=== PATIENT | male | born 1950 | race Caucasian/White ===

== ENCOUNTER 2018-01-19 09:56 | Day surgery (SDC) | payer MEDICARE, MEDICAID ==
[2018-01-18 14:03] VITALS: BMI 21.7
[2018-01-19 11:16] LABS: Hemoglobin 13.9 g/dL (14.0-18.0)
[2018-01-19 11:39] LABS: Anion Gap 8 mmol/L (10-20); BUN (Urea Nitrogen) 18 mg/dL (8.4-25.7); Calc. Creatinine Clearance 97 mL/min (70-130); Calcium 9.1 mg/dL (7.8-10.44); Carbon Dioxide 32 mmol/L (23-31); Chloride 103 mmol/L (98-107); Estimated GFR-MDRD Greater than 90; Glucose 95 mg/dL (80-115); Potassium 4.3 mmol/L (3.5-5.1); Sodium 139 mmol/L (136-145)
[2018-01-19] MEDS ORDERED: PROPOFOL 200 MG/20 ML VIAL ONE (11:47)
[2018-01-19] MEDS ORDERED: Lidocaine 1% PF 5 ML VIAL ONE (11:47)
[2018-01-19] MEDS ORDERED: PHENYLEPHRINE-NS 100 MCG/ML 10 ML SYRINGE ONE (11:47)
[2018-01-19] MEDS ORDERED: ePHEDrine/0.9% NaCl/PF SYRINGE 50 mg/10 ml ONE (11:47)
[2018-01-19] MEDS ORDERED: Fentanyl 100 MCG/2 ML VIAL ONE (14:08)
[2018-01-19] MEDS ORDERED: Lidocaine 1% w/Epinephrine 1:100K 30 ML VIAL ONE (14:17)
--- NOTE | 2018-01-20 12:57 | OP ---
DATE OF PROCEDURE: 01/19/2018 PREOPERATIVE DIAGNOSIS: Posttraumatic auricular hematoma. POSTOPERATIVE DIAGNOSIS: Posttraumatic auricular hematoma. PROCEDURE PERFORMED: Incision and drainage of auricular hematoma. PROCEDURE IN DETAIL: After consent was obtained, the patient was identified, brought to the operating room, and placed on the operating table in supine position. General anesthesia was obtained with a laryngeal mask respiratory tube. The patient was positioned for surgery, prepped, and draped. We then made an incision around the helical rim and carried it down through the perichondrium. We then encountered old hematoma, which was evacuated. The skin was then reapproximated in [id number] fashion with several 1-0 chromic quilting sutures. Sterile dressing was applied. The patient was then awakened and taken to recovery room in stable condition prior to discharge home. Job ID: [id number]
--- NOTE | 2018-01-20 18:51 | EKG ---
Test Reason : PREOP Blood Pressure : / mmHG Vent. Rate : 075 BPM Atrial Rate : 075 BPM P-R Int : 162 ms QRS Dur : 070 ms QT Int : 368 ms P-R-T Axes : 075 081 074 degrees QTc Int : 410 ms Normal sinus rhythm Normal ECG No previous ECGs available Confirmed by Elena PUGA ([id number]) on 01/20/2018 6:51:09 PM Referred By: MAY Confirmed By:Elena PUGA
== END 2018-01-19 17:15 | disposition home or self-care (01) ==
LOC: SDC 09:56
PROVIDERS: ATTEND Specialist
PROC: 09900ZZ Drainage of Right External Ear, Open Approach (ICD-10-PCS; principal; 2018-01-19)
DX: S00.431A Contusion of right ear, initial encounter (principal); F20.9 Schizophrenia, unspecified; G80.9 Cerebral palsy, unspecified; M19.90 Unspecified osteoarthritis, unspecified site; K21.9 Gastro-esophageal reflux disease without esophagitis; Z79.51 Long term (current) use of inhaled steroids; Z79.82 Long term (current) use of aspirin; Z79.899 Other long term (current) drug therapy; W22.8XXA Striking against or struck by other objects, initial encounter
CPT/HCPCS: 80048; 85014; 85018; 93005; 93010; J2001; J2704; J3010

== ENCOUNTER 2020-02-10 12:46 | Inpatient (IN) | payer MEDICARE, MEDICAID ==
[2020-02-10 13:21] LABS: #Basophils 0.1 thou/uL (0.0-0.2); #Lymphocytes 2.8 thou/uL (1.20-3.40); #Monocytes 0.8 thou/uL (0.11-0.59); #Neutrophils 8.1 thou/uL (1.40-6.50); %Basophils 0.5 % (0.0-1.0); %Eosinophils 0.3 % (0.0-10.0); %Lymphocytes 23.5 % (21.0-51.0); %Neutrophils 68.7 % (42.0-75.0); Hemoglobin 15.7 g/dL (14.0-18.0); Mean Corpuscular HGB CONC 31.9 g/dL (32.0-36.0); Mean Corpuscular Hemoglobin 31.1 pg (27.0-31.0); Mean Corpuscular Volume 97.6 fL (78.0-98.0); Mean Platelet Volume 7.2 fL (7.4-10.4); Platelet Count 296 thou/uL (130-400); RBC Distribution Width 12.5 % (11.5-14.5); Red Blood Cell (RBC) Count 5.04 mill/uL (4.70-6.10); White Blood Cell (WBC) Count 11.8 thou/uL (4.8-10.8)
[2020-02-10 13:44] LABS: ALT (SGPT) 24 U/L (8-55); AST (SGOT) 20 U/L (5-34); Albumin 3.8 g/dL (3.4-4.8); Alkaline Phosphatase 39 U/L (40-110); Anion Gap 14 mmol/L (10-20); BUN (Urea Nitrogen) 33 mg/dL (8.4-25.7); Bilirubin, Total 0.7 mg/dL (0.2-1.2); Calc. Creatinine Clearance 0 mL/min (70-130); Calcium 8.5 mg/dL (7.8-10.44); Carbon Dioxide 29 mmol/L (23-31); Chloride 106 mmol/L (98-107); Globulin 3.2 g/dL (2.4-3.5); Glucose 138 mg/dL (80-115); Potassium 3.8 mmol/L (3.5-5.1); Sodium 145 mmol/L (136-145)
[2020-02-10 13:51] LABS: Bilirubin Negative (Negative); Blood, Urine Trace (Negative); Clarity Clear (Clear); Glucose, Urine (Dipstick) Normal (Negative); Ketone, Urine Negative (Negative); Leukocyte Negative Leu/uL (Negative); Mucous/LPF 2+ LPF (<2+); Nitrite Negative (Negative); Protein, Urine (Dipstick) 30 mg/dL (Neg-Trace); Specific Gravity, Urine 1.034 (1.002-1.036); Squamous Epithelial None Seen HPF (0-3); Urobilinogen Normal mg/dL (Less than 2); WBC/HPF 0-3 HPF (0-3); pH, Urine 5.5 (5.0-9.0)
--- NOTE | 2020-02-10 13:57 | RAD ---
CHEST ONE VIEW: Comparison: 08-27-2019 History: Fever, Covid positive patient FINDINGS: Stable elongation of the aorta. Normal cardiac silhouette. The pulmonary vessels and hilum are normal . Costophrenic angles are clear. No masses or consolidation. Chronic interstitial changes. There is a calcified granuloma in the left lung base. No pneumothorax or acute osseous abnormalities. IMPRESSION: No acute cardiopulmonary process. POS: PPP
[2020-02-10 14:00] LABS: Bacteria/HPF 1+ HPF (None Seen)
[2020-02-10] MEDS ORDERED: Acetaminophen 650 MG Suppository ONE (14:05)
[2020-02-10] MEDS ORDERED: cefTRIAXone\\ROCEPHIN 2 GM VIAL ONE (14:09)
[2020-02-10 14:29] LABS: SARS-CoV-2 NAA Rapid Test Not Detected (NotDetected)
--- NOTE | 2020-02-10 15:53 | PDOC.HHP ---
Hospitalist HPI - History of Present Illness Persistent fever History of Present Illness: Mr. Rojas is a 69-year-old male with a past medical history of cerebral palsy, nonverbal at baseline from [facility], type 2 diabetes mellitus, GERD, history of recurrent UTIs with sepsis, colostomy bag in place who presents from [facility] for persistent fever. Patient's fever began on 01/15 and patient was given Cipro, however no resolution of fever. [facility] reports patient's fever has been 103 to 103.9 degrees orally. Patient is nonverbal at baseline but nursing staff reports no change in patient's baseline mental status and no other symptoms that they are aware of. Of note patient has history of prior Covid infection in August, and has tested negative for Covid PCR here. Emergency room initial vital signs 118/74, 98, 20, 101.4, 92% on room air. Patient's white blood cell count 11.8, lactic acid 2.7. H/H 15.7/49.1. BUN/CR 33/0.82. Sodium 145, potassium 3.8. Glucose 138. Chest x-ray showed calcified granuloma and chronic interstitial changes but no acute findings. UA with trace blood, leukocyte esterase negative, 0-3 WBCs and 1+ bacteria. Patient admitted to hospital service for further work-up of patient's fever. Hospitalist ROS - Review of Systems ROS unobtainable: due to mental status Constitutional: reports: fever - Medication Medications: Medication list taken from ER records Aspirin Baclofen Citalopram Lactulose Omeprazole Allergy to pollen We will need to confirm medication list with care home. Hospitalist History - Past Medical History Source: care home record, old records Other Medical History: Past medical history includes Cerebral palsy Schizoaffective disorder UTIs with sepsis Type 2 diabetes mellitus GERD Colostomy Prior COVID-19 infection in August 2019 - Family History Other Family History: Unable to obtain - Social History Other Social History: Patient is quadriplegic and lives at [facility]. No family or other social information available. - Exam General - other findings: Opens eyes to voice, does not follow commands Eye: PERRL, anicteric sclera ENT: normocephalic atraumatic Neck: supple, symmetric, no JVD, no thyromegaly, no lymphadenopathy, no carotid bruit Heart: RRR, no murmur, no gallops, no rubs, normal peripheral pulses Respiratory: CTAB, no wheezes, no rales, no ronchi, normal chest expansion, no tachypnea, normal percussion Gastrointestinal: soft, non-tender, non-distended, normal bowel sounds, no palpable masses, no hepatomegaly, no splenomegaly, no bruit Gastrointestinal - other findings: Colostomy bag in place Extremities - other findings: Limbs contracted Skin: normal turgor, no lesions, no rashes Neurological - other findings: Quadriplegia with contraction Musculoskeletal - other findings: Hypertonia in all limbs Psychiatric - other findings: Opens eyes to voice, nonverbal, does not follow commands or answer yes/no q Hospitalist Results - Labs Result Diagrams: 02/11/20 06:18 02/11/20 06:18 Lab results: WBC 11.8 thou/uL (4.8-10.8) H 02/10/20 13:08 Hgb 15.7 g/dL (14.0-18.0) 02/10/20 13:08 Hct 49.1 % (42.0-52.0) 02/10/20 13:08 MCV 97.6 fL (78.0-98.0) 02/10/20 13:08 Plt Count 296 thou/uL (130-400) 02/10/20 13:08 Neutrophils % 68.7 % (42.0-75.0) 02/10/20 13:08 Sodium 145 mmol/L (136-145) 02/10/20 13:08 Potassium 3.8 mmol/L (3.5-5.1) 02/10/20 13:08 Chloride 106 mmol/L (98-107) 02/10/20 13:08 Carbon Dioxide 29 mmol/L (23-31) 02/10/20 13:08 BUN 33 mg/dL (8.4-25.7) H 02/10/20 13:08 Creatinine 0.82 mg/dL (0.7-1.3) 02/10/20 13:08 Glucose 138 mg/dL (80-115) H 02/10/20 13:08 Lactic Acid 2.7 mmol/L (0.5-2.2) H 02/10/20 13:08 Calcium 8.5 mg/dL (7.8-10.44) 02/10/20 13:08 Total Bilirubin 0.7 mg/dL (0.2-1.2) 02/10/20 13:08 AST 20 U/L (5-34) 02/10/20 13:08 ALT 24 U/L (8-55) 02/10/20 13:08 Alkaline Phosphatase 39 U/L (40-110) L 02/10/20 13:08 Serum Total Protein 7.0 g/dL (5.8-8.1) 02/10/20 13:08 Albumin 3.8 g/dL (3.4-4.8) 02/10/20 13:08 Urine Ketones Negative mg/dL (Negative) 02/10/20 13:20 Urine Blood Trace (Negative) A 02/10/20 13:20 Urine Nitrite Negative (Negative) 02/10/20 13:20 Ur Leukocyte Esterase Negative Lebron/uL (Negative) 02/10/20 13:20 Urine RBC 7-10 HPF (0-3) A 02/10/20 13:20 Urine WBC 0-3 HPF (0-3) 02/10/20 13:20 Ur Squamous Epith Cells None Seen HPF (0-3) 02/10/20 13:20 Urine Bacteria 1+ HPF (None Seen) A 02/10/20 13:20 Hospitalist H&P A/P - Plan Plan: Presumed UTI with persistent fevers Unknown origin. Patient initiated on Cipro for suspected UTI at care home 3 days ago, however patient remains febrile. Chest x-ray with no acute findings, UA negative, awaiting urine cultures. No obvious source of infection at this time. Patient febrile to as high as 103.4 at care home, currently febrile at 101.4 on Tylenol. WBC 11.8. Lactic acid 2.7. UA on 02/08 grossly positive. UA today 02/09 looks improved. Waiting on urine cultures. Will obtain blood cultures. Patient received ceftriaxone in emergency room. COVID, Flu negative. Plan Blood cultures, urine cultures Trend WBC, lactic acid, fever curve Continue ceftriaxone IV fluids Cerebral palsy History of cerebral palsy. Patient is quadriplegic and resides at [facility]. Patient with severe muscle contractures and is nonverbal at baseline. Patient on home baclofen, lactulose. We will continue these once d osages are confirmed. Plan Continue home medications once dosages confirmed We will place patient on fall precautions Pured diet honey thickened liquids Aspiration precautions Type 2 diabetes mellitus History of type 2 diabetes mellitus, however records are conflicting on if patient is on insulin or not. BMP glucose 138. Will place on a [facility] glucose checks and monitor for now. History of COVID-19 infection Hx of COVID in August of 2019. Patient is COVID negative on admission. DVT prophylaxisLovenox Unable to confirm CODE STATUS, records are conflicting. I have attempted to call family with numbers listed in medical records, however no answer. Case discussed with Dr. Waller
[2020-02-10] MEDS ORDERED: Acetaminophen 650 MG Suppository PR PRN (16:11)
[2020-02-10] MEDS ORDERED: Bisacodyl 10 MG SUPP PR PRN (16:11)
[2020-02-10] MEDS ORDERED: Ondansetron PF 4 MG/2 ML Vial IVP PRN (16:11)
[2020-02-10 17:13] LABS: Lactic Acid 1.4 mmol/L (0.5-2.2)
--- NOTE | 2020-02-10 20:04 | PDOC.BPN ---
- Brief Progress Note Encounter Date: 02/10/20 Encounter Time: 20:04 chart reviewed and patient discussed with LOUIS Tidwell, I agree with the plan of care as outlined in the History & Physical.
[2020-02-10] MEDS: Sodium Chloride 0.9% 1,000 ML IV SCH (21:40)
[2020-02-10 23:56] VITALS: BMI 18.2
[2020-02-11] MEDS: Sodium Chloride 0.9% 1,000 ML IV SCH (04:20)
--- NOTE | 2020-02-11 06:07 | PDOC.FM ---
- Subjective Subjective: Mr. Rojas does not appear to be in any distress but is difficult to assess given his nonverbal status and quadriplegia. - Objective Vital Signs & Weight: Vital Signs (12 hours) Temp Pulse Resp BP Pulse Ox 02/11/20 03:00 99.9 F H 93 18 105/64 98 02/10/20 23:55 113/79 02/10/20 23:37 98.4 F 87 18 85/47 L 95 02/10/20 19:48 98.0 F 87 18 94/61 95 Weight Weight 51.2 kg I&O: 02/09/20 02/10/20 02/11/20 06:59 06:59 06:59 Intake Total 1000 Output Total 0 Balance 1000 Result Diagrams: 02/11/20 06:18 02/11/20 06:18 Phys Exam - Physical Examination Constitutional: NAD Neck: supple Respiratory: clear to auscultation bilateral Cardiovascular: RRR, no significant murmur Gastrointestinal: soft, no distention, positive bowel sounds No edema/erythema/discharge around colostomy insertion site Musculoskeletal: no edema Quadriplegic at baseline Nonverbal, A&O difficult to assess Skin: no rash Dx/Plan - Plan Plan: This is a 69M who presented from [facility] for persistent fevers in the setting of a known UTI. Presumed UTI - [facility]. Fevers persisted into 103sF - UA pos for 1+ bacteria, protein, blood, RBCs. s/p Rocephin in ED. * UA on 02/08 grossly positive - Chest x-ray with no acute findings. Resp panel, including flu and covid neg - On admission, WBC 11.8, LA 2.7 > 1.4 - am CBC, BMP - UCx pending - BCx NGTD - Continue Rocephin. Tylenol for fever. - mIVF of NS at 100mL/h Cerebral palsy - Patient is quadriplegic with severe muscle contractures and is nonverbal and hard of hearing at baseline. - Continue home meds - High risk for pressure sores and several present on arrival. Wound care con sulted. NPO pending speech eval - Fall precautions and strict bedrest. Aspiration precautions Type 2 diabetes mellitus - Per clinic record from 12/2019, pt not on insulin - ACHS checks. Consider hypoglycemia protocol Chronic conditions Chronic constipation with divine colon and sigmoid colectomy: continue home meds GERD: Continue home Omeprazole Schizoaffective disorder: does not appear to be on any medications for this currently Rosacea History of COVID-19 infection - August of 2019. COVID negative on admission. IVF: NS 100mL/h DVT: Lovenox Code: Will call [facility] and attempt calling family today to verify given conflicting reports. PCP: [facility] Dispo: admit to in medical. Still searching for clear source of infxn. Will continue to monitor vitals and labwork. Addendum - Attending - Attending Attestation Date/Time: 02/11/20 1200 I personally evaluated the patient and discussed the management with Dr. King Olea. I agree with the History, Examination, Assessment and Plan documented above with any addition or exceptions noted below.
[2020-02-11 06:57] LABS: #Basophils 0.1 thou/uL (0.0-0.2); #Eosinphils 0.1 thou/uL (0.0-0.7); #Lymphocytes 2.4 thou/uL (1.20-3.40); #Monocytes 0.5 thou/uL (0.11-0.59); #Neutrophils 7.3 thou/uL (1.40-6.50); %Basophils 0.7 % (0.0-1.0); %Eosinophils 0.6 % (0.0-10.0); %Lymphocytes 22.9 % (21.0-51.0); %Monocytes 5.2 % (0.0-10.0); %Neutrophils 70.7 % (42.0-75.0); Mean Corpuscular HGB CONC 32.5 g/dL (32.0-36.0); Mean Corpuscular Hemoglobin 31.7 pg (27.0-31.0); Mean Corpuscular Volume 97.5 fL (78.0-98.0); Mean Platelet Volume 7.6 fL (7.4-10.4); Platelet Count 249 thou/uL (130-400); RBC Distribution Width 12.5 % (11.5-14.5); Red Blood Cell (RBC) Count 4.11 mill/uL (4.70-6.10); White Blood Cell (WBC) Count 10.3 thou/uL (4.8-10.8)
[2020-02-11 07:19] LABS: Anion Gap 13 mmol/L (10-20); BUN (Urea Nitrogen) 24 mg/dL (8.4-25.7); Calc. Creatinine Clearance 74 mL/min (70-130); Calcium 7.8 mg/dL (7.8-10.44); Carbon Dioxide 26 mmol/L (23-31); Chloride 111 mmol/L (98-107); Glucose 96 mg/dL (80-115); Potassium 3.8 mmol/L (3.5-5.1); Sodium 146 mmol/L (136-145)
[2020-02-11] MEDS ORDERED: IBUPROFEN 200 MG PO PRN (08:23)
[2020-02-11] MEDS ORDERED: Milk Of Magnesia 30 ML UDCUP PO PRN (08:23)
[2020-02-11] MEDS: Enoxaparin Sodium 30 MG/0.3 ML SYRINGE SC SCH (08:43)
[2020-02-11] MEDS ORDERED: Non-Formulary Item 1 EACH (Amino Acids/Protein Hydrolys [Pro-Stat 64 Liquid] 30 ML Packet PO SCH (09:00)
[2020-02-11] MEDS ORDERED: Non-Formulary Item 1 EACH (Fluticasone Furoate [Arnuity Ellipta] 50 MCG Blst.W.Dev) EA NARE SCH (09:00)
[2020-02-11] MEDS ORDERED: Aspirin 325 mg Enteric Coated Tablet PO SCH (12:00)
[2020-02-11] MEDS ORDERED: Citalopram 10 MG TAB PO SCH (12:00)
[2020-02-11] MEDS ORDERED: Ascorbic Acid 500 mg Chewable Tablet PO SCH (12:00)
[2020-02-11] MEDS: Lactated Ringer's 1,000 ML IV SCH ×2 (12:22→21:40)
[2020-02-11] MEDS: cefTRIAXone\\ROCEPHIN 1 GM in Sodium Chloride 0.9% 100 ML IVPB SCH (13:49)
[2020-02-11] MEDS ORDERED: Acetaminophen 500 MG TAB PO SCH (15:00)
[2020-02-11] MEDS: Hydrocerin (Eucerin) Cream 120 gm Jar TOP SCH (21:00)
[2020-02-11] MEDS ORDERED: Baclofen 10 MG TAB PO SCH (21:00)
[2020-02-11] MEDS ORDERED: Carbamide Peroxide 6.5% Otic Drops 15 ml Bottle EA EAR PRN (21:00)
[2020-02-11] MEDS ORDERED: FLU VACC QS2020-21(65YR UP)/PF 240 MCG/0.7 ML SYRINGE IM ONE (21:00)
[2020-02-11] MEDS: Fluticasone Propionate Nasal Spray 16 gm Bottle NASAL SCH (21:31)
--- NOTE | 2020-02-12 07:05 | PDOC.FM ---
- Subjective Subjective: Elevated temp to 100.2F without true fever overnight, resolved without anti- pyretic. Occasional grimacing this morning, remains non-verbal but does open eyes with stimulation. Unable to assess ROS due to patient inability to answer questions. - Objective Vital Signs & Weight: Vital Signs (12 hours) Temp Pulse Resp BP Pulse Ox 02/12/20 04:43 99.6 F 84 82 H 134/77 98 02/12/20 02:15 98.2 F 02/12/20 00:50 100.2 F H 80 18 115/70 100 02/11/20 20:57 99.1 F 02/11/20 20:00 100.1 F H 76 18 125/71 100 02/11/20 19:41 100 Weight Admit Weight 51.2 kg Weight 51.2 kg I&O: 02/11/20 02/12/20 02/13/20 06:59 06:59 06:59 Intake Total 1000 1800 Output Total 0 0 Balance 1000 1800 Result Diagrams: 02/11/20 06:18 02/11/20 06:18 Phys Exam - Physical Examination occasional grimacing dry mucous membranes Neck: no nodes, no JVD, supple Respiratory: clear to auscultation bilateral Cardiovascular: RRR, no significant murmur Gastrointestinal: soft, non-tender, no distention Musculoskeletal: no edema bilateral lower extremity contractures Deviation from normal: unable to assess due to non-verbal status Skin: normal turgor Dx/Plan - Plan Plan: This is a 69M who presented from [facility] for persistent fevers in the setting of a known UTI. Presumed UTI - Started on Cipro for suspected UTI at half-way 3 days ago. Fevers persisted into 103sF - UA pos for 1+ bacteria, protein, blood, RBCs. s/p Rocephin in ED. * UA on 02/08 grossly positive - Chest x-ray with no acute findings. Resp panel, including flu and covid neg - On admission, WBC 11.8, LA 2.7 > 1.4 - am CBC, BMP - UCx pending - BCx NGTD - Continue Rocephin. Tylenol for fever. - mIVF of NS at 100mL/h Cerebral palsy - Patient is quadriplegic with severe muscle contractures and is nonverbal and hard of hearing at baseline. - Continue home meds - High risk for pressure sores and several present on arrival. Wound care consulted. NPO pending speech eval - Fall precautions and strict bedrest. Aspiration precautions Type 2 diabetes mellitus - Per clinic record from 12/2019, pt not on insulin - ACHS checks. Consider hypoglycemia protocol Chronic conditions Chronic constipation with divine colon and sigmoid colectomy: continue home meds GERD: Continue home Omeprazole Schizoaffective disorder: does not appear to be on any medications for this currently Rosacea History of COVID-19 infection - August of 2019. COVID negative on admission. IVF: NS 100mL/h DVT: Lovenox Code: Will call [place] and attempt calling family today to verify given conflicting reports. PCP: [facility]hal Dispo: admit to in medical. Still searching for clear source of infxn. Will continue to monitor vitals and labwork. This is a 69M who presented from [facility] for persistent fevers in the setting of a known UTI. Presumed UTI Started cipro for suspected UTI at half-way 3 days ago with outpatient fevers to 103F. - UA pos for 1+ bacteria, protein, blood, RBCs. s/p Rocephin in ED. - f/u urine cx - NGTD at 24hrs - Chest x-ray with no acute findings. Resp panel, including flu and covid neg. Blood cx NGTD. - will continue rocephin while inpatient - if urine cx results negative, may switch to keflex and discharge to half-way, will need 7 total days of therapy started 02/09 Cerebral palsy - Patient is quadriplegic with severe muscle contractures and is nonverbal and hard of hearing at baseline. - Continue home meds - High risk for pressure sores and several present on arrival. Wound care consulted. NPO pending speech eval - Fall precautions and strict bedrest. Aspiration precautions - No obvious areas of ulceration that would cause fever Type 2 diabetes mellitus - Per clinic record from 12/2019, pt not on insulin - ACHS checks. Consider hypoglycemia protocol Chronic conditions Chronic constipation with divine colon and sigmoid colectomy: continue home meds GERD: Continue home Omeprazole Schizoaffective disorder: does not appear to be on any medications for this currently Rosacea History of COVID-19 infection - August of 2019. COVID negative on admission. IVF: NS 100mL/h DVT: Lovenox Code: Will call NH and attempt calling family today to verify given conflicting reports. PCP: [facility] Dispo: admit to inpt medical, likely DC to half-way later today if final urine cx negative Addendum - Attending - Attending Attestation Date/Time: 02/12/20 [id number] I personally evaluated the patient and discussed the management with Dr. Weber. I agree with the History, Examination, Assessment and Plan documented above with any addition or exceptions noted below. Patient overall stable. Has been afebrile >24 hours. Cultures negative. Could have been viral process versus suboptimally treated UTI. No evidence of systemic infection at this time. Work to get back to [facility] in the next day or so given the lack of findings suggestive of serious bacterial infection.
[2020-02-12 07:49] VITALS: BP 108/56; TEMP 98.2
[2020-02-12] MEDS ORDERED: Aspirin 325 mg Enteric Coated Tablet PO SCH (09:00)
[2020-02-12] MEDS ORDERED: Citalopram 10 MG TAB PO SCH (09:00)
[2020-02-12] MEDS ORDERED: Ascorbic Acid 500 mg Chewable Tablet PO SCH (09:00)
[2020-02-12] MEDS: Enoxaparin Sodium 30 MG/0.3 ML SYRINGE SC SCH (09:41)
[2020-02-12] MEDS: Fluticasone Propionate Nasal Spray 16 gm Bottle NASAL SCH (09:42)
[2020-02-12] MEDS: Hydrocerin (Eucerin) Cream 120 gm Jar TOP SCH (09:43)
[2020-02-12] MEDS: Lactated Ringer's 1,000 ML IV SCH (09:44)
[2020-02-12] MEDS: cefTRIAXone\\ROCEPHIN 1 GM in Sodium Chloride 0.9% 100 ML IVPB SCH (15:06)
[2020-02-13] MEDS ORDERED: Aspirin 325 MG TAB PO SCH (09:00)
[2020-02-13] MEDS ORDERED: Pantoprazole 40 MG GRANULES PACKET PO SCH (09:00)
== END 2020-02-12 18:55 | DRG 689 ==
LOC: ERS 12:46 → T4-B 18:00
PROVIDERS: ADMIT Student in an Organized Health Care Education/Training Program; ATTEND Student in an Organized Health Care Education/Training Program
DX: N39.0 Urinary tract infection, site not specified (principal); G82.50 Quadriplegia, unspecified; Z86.19 Personal history of other infectious and parasitic diseases; G80.9 Cerebral palsy, unspecified; E11.9 Type 2 diabetes mellitus without complications; K21.9 Gastro-esophageal reflux disease without esophagitis; F25.9 Schizoaffective disorder, unspecified; M19.90 Unspecified osteoarthritis, unspecified site; Z93.3 Colostomy status; Z79.82 Long term (current) use of aspirin; Z79.899 Other long term (current) drug therapy
CPT/HCPCS: 0240U; 36415; 51701; 71045; 80048; 80053; 81003; 81015; 83605; 84145; 85025; 87040; 87086; 87633; 96365; 96366; J0696; J1650; J3490